=== PATIENT | female | born 1935 | race Caucasian/White ===

== ENCOUNTER 2018-07-07 05:05 | Observation (INO) | payer MEDICARE, OTHER ==
[2018-07-07] MEDS: SOD CHLORIDE 0.9% 1,000 ML IV ×3 (05:36→13:00)
[2018-07-07] MEDS: ONDANSETRON 4 MG INJ IV (05:36)
[2018-07-07] MEDS: morphine 4 MG/ML VIAL IV (05:36)
[2018-07-07 05:40] LABS: ADD MAN DIFF? NO
[2018-07-07 05:41] LABS: WHITE BLOOD COUNT 9.6 10^3/ul (4.8-10.8)
[2018-07-07 05:41] LABS: BASOPHILS % 0.4 % (0.0-2.0); EOSINOPHILS # 0.2 10^3/ul (0.0-0.5); EOSINOPHILS % 2.5 % (0.0-7.0); HEMATOCRIT 39.5 % (37.0-47.0); HEMOGLOBIN 12.8 g/dl (12.0-16.0); LYMPHOCYTES # 2.1 10^3/ul (0.8-2.9); LYMPHOCYTES % 21.4 % (15.0-51.0); MEAN CORPUSCULAR HEMOGLOBIN 29.7 pg (29.0-33.0); MEAN CORPUSCULAR HGB CONC 32.4 g/dl (32.0-37.0); MEAN CORPUSCULAR VOLUME 91.6 fl (82.0-101.0); MEAN PLATELET VOLUME 9.5 fl (7.4-10.4); MONOCYTE # 0.8 10^3/ul (0.3-0.9); NEUTROPHIL # 6.4 10^3/ul (1.6-7.5); PLATELET COUNT 206 10^3/UL (140-415); RED BLOOD COUNT 4.31 10^6/ul (4.20-5.40); RED CELL DISTRIBUTION WIDTH 12.8 % (11.5-14.5)
[2018-07-07 06:07] LABS: ALANINE AMINOTRANSFERASE 11 IU/L (13-69); ALBUMIN 4.2 g/dl (3.3-4.9); ALBUMIN/GLOBULIN RATIO 1.31; ALKALINE PHOSPHATASE 94 IU/L (42-121); AMYLASE 45 U/L (11-123); ANION GAP 12 (5-13); ASPARTATE AMINO TRANSFERASE 13 IU/L (15-46); BILIRUBIN,INDIRECT 0.5 mg/dl (0-1.1); BILIRUBIN,TOTAL 0.5 mg/dl (0.2-1.3); BLOOD UREA NITROGEN 27 mg/dl (7-20); CALCIUM 9.8 mg/dl (8.4-10.2); CARBON DIOXIDE 28 mmol/L (21-31); CHLORIDE 104 mmol/L (97-110); CREATININE 1.81 mg/dl (0.44-1.00); GLUCOSE 142 mg/dl (70-220); LIPASE 46 U/L (23-300); POTASSIUM 4.6 mmol/L (3.5-5.1); SODIUM 144 mmol/L (135-144); TOTAL PROTEIN 7.4 g/dl (6.1-8.1)
[2018-07-07 06:17] LABS: PROTIME 13.3 Sec (11.9-14.9)
[2018-07-07 06:18] LABS: PARTIAL THROMBOPLASTIN TIME 32.7 Sec (23.0-35.0)
[2018-07-07 06:19] LABS: TROPONIN-I < 0.012 ng/ml (0.000-0.120)
[2018-07-07] MEDS: IOHEXOL 300MG/ML 150 ML BTL (06:31)
[2018-07-07] MEDS: SOD CHLORIDE 0.9% 100 ML (06:32)
[2018-07-07 07:13] LABS: URINE BLOOD (Dip) POC Trace-intact (NEGATIVE); URINE GLUCOSE (Dip) POC Negative (NEGATIVE); URINE KETONES (Dip) POC Negative (NEGATIVE); URINE LEUKOCYTE EST (Dip) POC Negative (NEGATIVE); URINE NITRITE (Dip) POC Negative (NEGATIVE); URINE TOTAL PROTEIN POC Negative (NEGATIVE)
[2018-07-07 07:13] LABS: URINE PH (Dip) POC 5.5 (5.0-8.5)
[2018-07-07] MEDS: CIPROFLOXACIN 400MG/D5W 200 ML IVPB (08:22)
[2018-07-07] MEDS ORDERED: ONDANSETRON 4 MG INJ IV (08:30)
[2018-07-07] MEDS ORDERED: ACETAMINOPHEN 325 MG TAB PO (08:30)
[2018-07-07] MEDS: TAMSULOSIN (SR) 0.4 MG CAP PO (08:31)
[2018-07-07 08:35] LABS: ADD UMIC NO; UR ASCORBIC ACID NEGATIVE (NEGATIVE); UR BILIRUBIN (Dip) NEGATIVE (NEGATIVE); UR BLOOD (Dip) NEGATIVE (NEGATIVE); UR CLARITY CLEAR (CLEAR); UR COLOR STRAW (YELLOW); UR GLUCOSE (Dip) NEGATIVE (NEGATIVE); UR KETONES (Dip) NEGATIVE (NEGATIVE); UR LEUKOCYTE ESTERASE (Dip) NEGATIVE Leu/ul (NEGATIVE); UR NITRITE (Dip) NEGATIVE (NEGATIVE); UR SPECIFIC GRAVITY (Dip) 1.029 (1.003-1.030); UR TOTAL PROTEIN (Dip) NEGATIVE (NEGATIVE); UR UROBILINOGEN (Dip) NEGATIVE (NEGATIVE)
[2018-07-07] MEDS ORDERED: hydrALAzine 20 MG INJ IV (13:00)
[2018-07-07] MEDS ORDERED: HYDROCODONE/APAP (5/325) TAB PO (13:00)
[2018-07-07] MEDS: DOCUSATE SODIUM 100 MG CAP PO ×2 (17:19→21:23)
[2018-07-07] MEDS: DICLOFENAC SODIUM 1% GEL 100 GM TUBE TP (18:45)
[2018-07-07] MEDS: METOPROLOL 25 MG TAB PO (21:25)
[2018-07-08] MEDS: SOD CHLORIDE 0.9% 1,000 ML IV (02:12)
[2018-07-08 05:21] LABS: ADD MAN DIFF? NO
[2018-07-08 05:28] LABS: BASOPHIL # 0.1 10^3/ul (0.0-0.1); BASOPHILS % 0.6 % (0.0-2.0); EOSINOPHILS # 0.2 10^3/ul (0.0-0.5); EOSINOPHILS % 2.5 % (0.0-7.0); HEMATOCRIT 33.9 % (37.0-47.0); HEMOGLOBIN 10.8 g/dl (12.0-16.0); LYMPHOCYTES # 1.9 10^3/ul (0.8-2.9); LYMPHOCYTES % 23.1 % (15.0-51.0); MEAN CORPUSCULAR HEMOGLOBIN 29.8 pg (29.0-33.0); MEAN CORPUSCULAR HGB CONC 31.9 g/dl (32.0-37.0); MEAN CORPUSCULAR VOLUME 93.4 fl (82.0-101.0); MEAN PLATELET VOLUME 9.9 fl (7.4-10.4); MONOCYTE # 0.8 10^3/ul (0.3-0.9); MONOCYTES % 9.4 % (0.0-11.0); NEUTROPHIL # 5.2 10^3/ul (1.6-7.5); NEUTROPHILS % 63.9 % (39.0-77.0); PLATELET COUNT 179 10^3/UL (140-415); RED BLOOD COUNT 3.63 10^6/ul (4.20-5.40); RED CELL DISTRIBUTION WIDTH 12.9 % (11.5-14.5)
[2018-07-08 05:28] LABS: WHITE BLOOD COUNT 8.1 10^3/ul (4.8-10.8)
[2018-07-08 05:49] LABS: ANION GAP 6 (5-13); BLOOD UREA NITROGEN 22 mg/dl (7-20); CALCIUM 8.4 mg/dl (8.4-10.2); CARBON DIOXIDE 29 mmol/L (21-31); CHLORIDE 106 mmol/L (97-110); CREATININE 0.95 mg/dl (0.44-1.00); GLUCOSE 112 mg/dl (70-220); MAGNESIUM 2.1 mg/dl (1.7-2.5); POTASSIUM 4.4 mmol/L (3.5-5.1); SODIUM 141 mmol/L (135-144)
[2018-07-08] MEDS: GABAPENTIN 300 MG CAP PO (08:38)
[2018-07-08] MEDS: DOCUSATE SODIUM 100 MG CAP PO (08:39)
[2018-07-08] MEDS: AMLODIPINE 5 MG TAB PO (08:39)
[2018-07-08] MEDS: ALLOPURINOL 100 MG TAB PO (08:40)
[2018-07-08] MEDS: HYDROCHLOROTHIAZIDE 12.5 MG CAP PO (08:40)
[2018-07-08] MEDS: METOPROLOL 25 MG TAB PO (08:40)
[2018-07-08] MEDS: PANTOPRAZOLE (EC) 40 MG TAB PO (08:40)
[2018-07-08] MEDS: ASPIRIN (EC) 81 MG TAB PO (08:41)
[2018-07-08] MEDS: LOSARTAN 50 MG TAB PO (08:42)
[2018-07-08] MEDS: OLOPATADINE 0.2% (ONCE A DAY) OPHTH DROP 2.5 ML BOTH EYES (08:42)
[2018-07-08] MEDS: DICLOFENAC SODIUM 1% GEL 100 GM TUBE TP (09:00)
[2018-07-08] MEDS ORDERED: NON-FORMULARY/PATIENT OWN MED (Losartan-Hydrochlorothiazide (Losartan-HCTZ) 1 TAB) PO (09:00)
[2018-07-08] MEDS: CIPROFLOXACIN 500 MG TAB PO (11:49)
== END 2018-07-08 11:55 | disposition home or self-care (01) ==
LOC: E/R 05:05 → 2NE 09:32
DX: N13.2 Hydronephrosis with renal and ureteral calculous obstruction (principal); K80.20 Calculus of gallbladder without cholecystitis without obstruction; N28.1 Cyst of kidney, acquired; K57.30 Diverticulosis of large intestine without perforation or abscess without bleeding; Z79.82 Long term (current) use of aspirin; M43.17 Spondylolisthesis, lumbosacral region; I51.7 Cardiomegaly; I25.10 Atherosclerotic heart disease of native coronary artery without angina pectoris; I71.2 Thoracic aortic aneurysm, without rupture
CPT/HCPCS: 36415; 71045; 74018; 74177; 80048; 80053; 81003; 82150; 83690; 83735; 84484; 85025; 85610; 85730; 87040; 87086; 88300; 93005; 93306; 96361; 96374; 96375; 99217; 99285-25